=== PATIENT | male | born 1985 | race African-American/Black ===

== ENCOUNTER 2021-03-19 11:15 | Emergency (ER) | payer SELFPAY ==
[2021-03-19 11:25] VITALS: BP 120/81; PULSE 121; RESP 20; TEMP 38; O2SAT 100; BMI 28.8
--- NOTE | 2021-03-19 11:40 | PC.NURSE ---
PATIENT SENT TO ER PER Melanie TRINIDAD APRN FOR FUTHER EVALUATION. REPORT GIVEN BY Melanie TRINIDAD APRN TO RAKEL APARICIO
[2021-03-19 11:42] LABS: Apearance,Urine Clear (Clear); Color,Urine Dark Yellow (Yellow)
[2021-03-19 11:43] LABS: Bilirubin,Urine 1+ (Negative); Blood, Urine 1+ (Negative); Glucose,Urine (UA) Negative (Negative); Ketones,Urine 15 (Negative); PH,Urine 5.5 (5.0-8.5); Protein,Urine 1+ (Negative); Specific Gravity, Urine 1.025 (1.005-1.030); UTC Leukocyte Esterase,Urine Negative (Negative); UTC Nitrate,Urine Negative (Negative); Urobilinogen,Urine 0.2 EU/dl (0.2)
--- NOTE | 2021-03-19 11:44 | HMH.EDUTC ---
[facility] – [place] Disposition Condition on Discharge: Fair <KathySuzette - Last Filed: 03/19/21 14:23> Condition on Discharge: Fair <KeatonJena - Last Filed: 03/19/21 21:27> Clinical Impression: Colitis Abdominal pain Qualifiers: Abdominal location: unspecified location Qualified Code(s): R10.9 - Unspecified abdominal pain Disposition: Home, Self-Care Instructions: Acute Abdominal Pain Additional Instructions: Please drink plenty of fluids. May take Tylenol and ibuprofen as needed for pain relief Please take Zofran as prescribed If symptoms persist or worsen, please follow-up with the PCP for further management. If you are unable to tolerate anything by mouth, please return to the ED for further evaluation. Prescriptions: Ondansetron [Zofran 4mg ODT] 4 mg PO Q6H PRN #8 tab PRN Reason: Vomiting Prescription Printed Referrals: Provider,Referral, MD [Primary Care Provider] - Medical Decision Making - Medical Records Medical records reviewed: Yes: I reviewed the patient's medical records. - Espinoza Inquiry Pt receiving controlled substance: Yes Espinoza was queried for this patient: Yes Risks and benefits of using a controlled substance: were discussed with pt by me - Lab Data Result diagrams: 03/19/21 12:00 03/19/21 12:00 <KathySuzette - Last Filed: 03/19/21 14:23> - Espinoza Inquiry Pt receiving controlled substance: No Espinoza was queried for this patient: No - Lab Data Result diagrams: 03/19/21 12:00 03/19/21 12:00 <KeatonJena - Last Filed: 03/19/21 21:27> Vital Signs: 03/19/21 11:25 03/19/21 12:00 03/19/21 13:34 Temperature 100.4 F H 98.9 F Temperature Source Oral Oral Pulse Rate Pulse Rate [Right Brachial] 121 H 74 93 H Respiratory Rate 20 18 Blood Pressure Blood Pressure [Right Arm] 120/81 136/86 145/89 H Blood Pressure Mean [Right Arm] 94 102 107 Blood Pressure Source [Right Arm] Automatic Cuff Automatic Cuff Blood Pressure Position [Right Arm] Sitting Sitting 02 Sat by Pulse Oximetry 100 98 97 Oxygen Delivery Method Room Air Room Air Room Air 03/19/21 14:20 Temperature 98.8 F Temperature Source Oral Pulse Rate 82 Pulse Rate [Right Brachial] Respiratory Rate 18 Blood Pressure 133/74 Blood Pressure [Right Arm] Blood Pressure Mean [Right Arm] Blood Pressure Source [Right Arm] Blood Pressure Position [Right Arm] 02 Sat by Pulse Oximetry Oxygen Delivery Method Room Air - Lab Data Lab Results 03/19/21 11:36: Urine Color Dark yellow, Urine Appearance Clear, Urine pH 5.5, Ur Specific [place] 1.025, Urine Protein 1+, Urine Glucose (UA) Negative, Urine Ketones 15, Urine Blood 1+, Urine Nitrate Negative, Urine Bilirubin 1+ A, Urine Urobilinogen 0.2, Ur Leukocyte Esterase Negative 03/19/21 12:00: Urine Color Yellow, Urine Appearance Clear, Urine pH 5.5, Ur Specific [place] 1.025, Urine Protein 2+, Urine Glucose (UA) Negative, Urine Ketones 1+, Urine Blood 1+, Urine Nitrate Negative, Urine Bilirubin 1+ A, Urine Urobilinogen 0.2, Ur Leukocyte Esterase Negative, Urine RBC 5-10, Urine WBC 3-5, Ur Squamous Epith Cells Occasional, Urine Bacteria None 03/19/21 12:00: WBC 18.3 H, RBC 4.40 L, Hgb 14.7, Hct 42.5, MCV 96.5 H, MCH 33.4 H, MCHC 34.6, RDW 13.6, Plt Count 332, MPV 8.1, Neut % (Auto) 90.4 H, Lymph % (Auto) 5.2 L, [place] % (Auto) 2.6, Eos % (Auto) 1.4, Baso % (Auto) 0.5, Neut # (Auto) 16.5 H, Lymph # (Auto) 1.0, [place] # (Auto) 0.5, Eos # (Auto) 0.3, Baso # (Auto) 0.1, Total Counted 100, Neutrophils % (Manual) 84 H, Lymphocytes % (Manual) 9 L, Monocytes % (Manual) 7, Platelet Estimate Normal, RBC Morphology Normal 03/19/21 12:00: Sodium 136, Potassium 4.3, Chloride 102, Carbon Dioxide 21 L, Anion Gap 17.3 H, BUN 15, Creatinine 1.30 H, Estimated Creat Clear 102, Estimated GFR 63, Est GFR ( Amer) 76, Glucose 127 H, Calcium 9.6, Total Bilirubin 0.9, AST 33, ALT 24, Alkaline Phosphatase 75, Total Protein 9.4 H, Albumin 5.0, Globulin 4.4 H, Albumin/Globulin Ratio 1.1, Lipas
[2021-03-19 12:00] VITALS: BP 136/86; PULSE 74; RESP 18; TEMP 37.2; O2SAT 98; BMI 28.8
--- NOTE | 2021-03-19 12:13 | CT_ITS ---
PROCEDURE INFORMATION: Exam: CT Abdomen And Pelvis With Contrast Exam date and time: 03/19/2021 12:13 PM Age: 36 years old Clinical indication: Abdominal pain; Patient HX: Generalized abdominal and back pain after vomiting last night. ; Additional info: Diffuse abd pain TECHNIQUE: Imaging protocol: Computed tomography of the abdomen and pelvis with contrast. Radiation optimization: All CT scans at this facility use at least one of these dose optimization techniques: automated exposure control; mA and/or kV adjustment per patient size (includes targeted exams where dose is matched to clinical indication); or iterative reconstruction. Contrast material: ISOVUE; Contrast volume: 75 ml; Contrast route: IV; COMPARISON: No relevant prior studies available. FINDINGS: Liver: Mild hepatomegaly. Gallbladder and bile ducts: Normal. Pancreas: Normal. Spleen: Normal. Adrenal glands: Normal. No mass. Kidneys and ureters: Normal. Stomach and bowel: Mild wall thickening of the ascending colon and portions of the descending colon, with minimal adjacent fat stranding, possibly infectious/inflammatory colitis. Appendix: Appendix normal. Intraperitoneal space: Unremarkable. No free air. No significant fluid collection. Vasculature: Phleboliths within the pelvis. Lymph nodes: Unremarkable. No enlarged lymph nodes. Urinary bladder: Unremarkable as visualized. Reproductive: Unremarkable as visualized. Bones/joints: Multilevel thoracolumbar spine degenerative changes. Soft tissues: Normal. IMPRESSION: Mild wall thickening of the ascending colon and portions of the descending colon, with minimal adjacent fat stranding, possibly infectious/inflammatory colitis.
[2021-03-19 12:19] LABS: Appearance,Urine CLEAR (Clear); Blood, Urine 1+ (Negative); Color,Urine YELLOW (Yellow); Glucose,Urine (UA) Negative (Negative); Ketones,Urine 1+ (Negative); Leukocyte Esterase,Urine Negative (Negative); Microscopic, Urine URINE MICROSCOPIC (MICROSCOPIC); Nitrate,Urine Negative (Negative); PH,Urine 5.5 (5.0-8.5); Protein,Urine 2+ (Negative); Specific Gravity, Urine 1.025 (1.005-1.030); Urobilinogen,Urine 0.2 EU/dl (0.2)
[2021-03-19 12:21] LABS: Bilirubin,Urine 1+ (Negative)
[2021-03-19 12:23] LABS: Basophils # 0.1 K/mm3 (0-0.2); Basophils % 0.5 % (0.1-2.0); Eosinophils # 0.3 K/mm3 (0.0-0.4); Eosinophils % 1.4 % (0.1-12.0); Hematocrit 42.5 % (42.0-52.0); Hemoglobin 14.7 g/dL (14.1-18.0); Lymphocytes % 5.2 % (10-50); Mean Corpuscular HGB Conc 34.6 g/dL (31.8-35.4); Mean Corpuscular Hemoglobin 33.4 pg (27.0-31.2); Mean Corpuscular Volume 96.5 fl (80-94); Mean Platelet Volume 8.1 fl (7.4-10.4); Monocytes # 0.5 K/mm3 (0.1-1.0); Monocytes % 2.6 % (1.7-9.3); Neutrophils # 16.5 K/mm3 (1.8-7.8); Neutrophils % 90.4 % (37.0-80.0); Platelet Count 332 K/mm3 (142-424); Red Cell Distribution Width 13.6 % (11.5-17.5); White Blood Count 18.3 K/mm3 (4.8-10.8)
[2021-03-19 12:24] LABS: Chloride 102 mmol/L (98-107); Potassium 4.3 mmoL/L (3.5-5.1); Sodium 136 mmol/L (136-145)
[2021-03-19 12:25] LABS: MANUAL DIFFERENTIAL MANUAL DIFFERENTIAL (MANUAL DIFF)
[2021-03-19 12:26] LABS: Blood Urea Nitrogen 15 mg/dl (9-20); Creatinine Clearance Estimated 102 mL/min (50-200); Estimated Glomerular Filt Rate 63 ml/min (>60); GFR (African American) 76 ML/MIN (>60); Lactic Acid 0.9 mmol/L (0.7-2.1)
[2021-03-19 12:27] LABS: Alanine Aminotransferase 24 U/L (12-78); Albumin/Globulin Ratio 1.1 (1.1-1.8); Alkaline Phosphatase 75 U/L (38-126); Anion Gap 17.3 mEq/L (5-15); Aspartate Amino Transferase 33 U/L (17-59); Bilirubin,Total 0.9 mg/dl (0.2-1.3); Calcium 9.6 mg/dl (8.4-10.2); Carbon Dioxide 21 mmol/L (22.0-30.0); Globulin 4.4 g/dL (1.3-3.2); Glucose 127 mg/dl (74-100); Lipase 72 U/L (23-300); Squamous Epithelial Cell,Urine Occasional #/hpf (0-5); Total Protein,Serum 9.4 g/dl (6.3-8.2)
[2021-03-19 12:36] LABS: Lymphocytes % 9 % (10-50); Monocytes % 7 % (2-9); Neutrophils % 84 % (42-76); Platelet Estimate Normal; RBC Morphology Normal; Total Cells Counted 100
[2021-03-19 13:34] VITALS: BP 145/89; PULSE 93; O2SAT 97
[2021-03-19 14:20] VITALS: BP 133/74; PULSE 82; RESP 18; TEMP 37.1; O2SAT 97
== END 2021-03-19 14:40 | disposition home or self-care (01) ==
LOC: UTC 11:52 → ER 11:59
PROVIDERS: Nurse Practitioner; Emergency Provider Emergency Medicine
DX: K52.9 Noninfective gastroenteritis and colitis, unspecified (principal); R10.84 Generalized abdominal pain; F17.210 Nicotine dependence, cigarettes, uncomplicated
CPT/HCPCS: 74177; 80053; 81001; 81003; 83605; 83690; 85007; 85025; 96365; 99283; J2405; Q9967

== ENCOUNTER 2021-05-18 17:03 | Emergency (ER) | payer SELFPAY ==
[2021-05-18 17:45] VITALS: BP 125/75; PULSE 67; RESP 18; TEMP 37.1; O2SAT 97; BMI 30.1
[2021-05-18 18:27] VITALS: BP 125/75; PULSE 67; RESP 18; TEMP 37.1; O2SAT 97
--- NOTE | 2021-05-18 18:27 | HMH.EDUTC ---
[facility] – [place] Disposition Clinical Impression: Exposure to COVID-19 virus Sinusitis Qualifiers: Sinusitis location: unspecified location Chronicity: unspecified Qualified Code(s): J32.9 - Chronic sinusitis, unspecified Disposition: Home, Self-Care Condition on Discharge: Good Instructions: Sinusitis, DI for Sinusitis, DI for COVID-19 (Suspected or Confirmed ) Additional Instructions: *Monitor Temp, Over the counter Motrin or Tylenol as directed/as needed Tylenol every 4 hours and Motrin every 6 hours (as long as your family doctor has told you that you can take it) for fever or pain. and straight to ER if unable to lower temp less than 101.0 after medication given *Warm salt water gargles may help to soothe the throat *Throat Lozenges *Warm fluids like tea with honey may help to soothe the throat *Sleep elevated *Humidifier/Vaporizer *Flonase 2 sprays in each nostril daily but be aware that it may take 2-3 days before you notice improvement Follow up IMMEDIATELY for new or worsening symptoms or no Noticeable improvement over the next 48-72 hours. 911 for difficulty breathing or swallowing You were tested for today for COVID19 your test result should be back in the next 24-48 hours, you may call to the [facility] to see if your test results are back in the next 48 hours [phone] [facility] hours are 9am-9pm You was given a handout with instructions for Self Quarantine and Self isolation for while you wait on test results and what to do if they are positive If you are positive the Health Dept will be contacting you also Make sure to take your Vitamins Vit. C Vit D and Zinc if you can take them Prescriptions: Fluticasone Propionate [Flonase 50mcg nasal spray 16gm] 1 spr NS DAILY #1 each Prescription Printed Azithromycin [Z-Trevor 250mg Tab] 250 mg PO DIRECTED #6 tab Prescription Printed Referrals: Provider,Referral, MD [Primary Care Provider] - As needed Forms: Work/School Release Medical Decision Making - Espinoza Inquiry Pt receiving controlled substance: No Espinoza was queried for this patient: No Vital Signs: 05/18/21 17:45 05/18/21 18:27 Temperature 98.7 F 98.7 F Temperature Source Oral Pulse Rate 67 Pulse Rate [Right Brachial] 67 Respiratory Rate 18 18 Blood Pressure 125/75 Blood Pressure [Right Arm] 125/75 Blood Pressure Mean [Right Arm] 91 Blood Pressure Source [Right Arm] Automatic Cuff Blood Pressure Position [Right Arm] Sitting 02 Sat by Pulse Oximetry 97 Oxygen Delivery Method Room Air Orders (Tests/Meds): ORDERS Category Date Time Status Covid-19 Nasal PCR ([facility]) Routine Lab 05/18/21 18:15 Ordered [facility] UTC HPI - General Stated complaint: covid test Time Seen by Provider: 05/18/21 18:27 Mode of Arrival: Ambulatory Source of Information: Patient Limitations: No Limitations Description of Symptoms (Recalled from Triage Doc. by RN): COVID TEST D/T EXPOSURE. C/O HEADACHE, COUGH, SORE THROAT AND CONGESTION HEENT Symptoms (Recalled from RN notes): Yes Resp Symptoms (Recalled from RN notes): No Skin Symptoms (Recalled from RN notes): No MS Symptoms (Recalled from RN notes): No Functional Status (Recalled from RN notes): WNL - History of Present Illness Provider Complaint: Patient states that he has bad sinuses and gets sinus infections often State that he has been having sinus congestion and pressure and then he started having headache and body aches States the later found out that he may have been exposed to COVID so he came in to get checked - Related Data Previous Rx's Medication Instructions Recorded Ondansetron [Zofran 4mg ODT] 4 mg PO Q6H PRN #8 tab 03/19/21 Azithromycin [Z-Trevor 250mg Tab] 250 mg PO DIRECTED #6 tab 05/18/21 Fluticasone Propionate [Flonase 1 spr NS DAILY #1 each 05/18/21 50mcg nasal spray 16gm] Allergies Allergy/AdvReac Type Severity Reaction Status Date / Time No Known Allergies Allergy Verified 03/19/21 11:41 - Worker's Comp Is this
== END 2021-05-18 18:39 | disposition home or self-care (01) ==
PROVIDERS: Emergency Provider Nurse Practitioner
DX: Z20.822 Contact with and (suspected) exposure to COVID-19 (principal)
CPT/HCPCS: 99202; G0463; U0003